=== PATIENT | female | born 1965 | race Caucasian/White ===

== ENCOUNTER 2020-09-07 21:41 | Observation (INO) ==
[2020-09-08] MEDS ORDERED: Acetaminophen 325 MG TABLET PO PRN (01:28)
[2020-09-08] MEDS ORDERED: Naloxone 0.4 MG/ML INJ IVP PRN (01:28)
[2020-09-08] MEDS ORDERED: Ondansetron ODT 4 MG TAB.RAPDIS SL PRN (01:28)
[2020-09-08] MEDS ORDERED: Dextrose Gel 15 GM/37.5 ML TUBE PO PRN ×2 (01:40)
[2020-09-08] MEDS ORDERED: D5% in Water 1,000 ML IVC PRN (01:40)
[2020-09-08] MEDS ORDERED: *HR* Dextrose 50 % in Water (Vial) 50 ML VIAL IVP PRN (01:40)
[2020-09-08] MEDS: Insulin LISPRO 300 UNITS/3 ML VIAL SQ SCH ×4 (02:20→17:43)
[2020-09-08 03:29] LABS: Adenovirus Not Detected (Not Detect); Bordetella Pertussis Not Detected (Not Detect); Chlamydophila pneumoniae Not Detected (Not Detect); Coronavirus 229E Not Detected (Not Detect); Coronavirus HKU1 Not Detected (Not Detect); Coronavirus NL63 Not Detected (Not Detect); Coronavirus OC43 Not Detected (Not Detect); Human Metapneumovirus Not Detected (Not Detect); Human Rhinovirus/Enterovirus Not Detected (Not Detect); Influenza A Subtype 2009 H1 Not Detected (Not Detect); Influenza B Not Detected (Not Detect); Mycoplasma pneumoniae Not Detected (Not Detect); Parainfluenza Virus 1 Not Detected (Not Detect); Parainfluenza Virus 2 Not Detected (Not Detect); Parainfluenza Virus 3 Not Detected (Not Detect); Parainfluenza Virus 4 Not Detected (Not Detect); Respiratory Syncytial Virus Not Detected (Not Detect); SARS-CoV-2 DETECTED (Not Detect)
[2020-09-08 07:01] LABS: Basophils % 0.2 %; Hematocrit 39.7 % (35.3-44.9); Hemoglobin 12.7 g/dL (11.5-15.4); Immature Granulocytes % 0.9 % (0-4); Lymphocytes % 7.5 %; Mean Corpuscular Hemoglobin 27.7 pg (28.0-33.3); Mean Corpuscular Volume 86.7 fL (83.0-100.0); Monocytes # 0.3 K/mcL (0.0-1.3); Monocytes % 2.5 %; Neutrophils # 11.3 K/mcL (1.6-8.9); Platelet Count 167 K/mcL (140-400); Red Blood Count 4.58 M/mcL (3.82-4.97); Red Cell Distribution Width 12.9 % (11.5-14.5); Segmented Neutrophils % 88.9 %; White Blood Count 12.8 K/mcL (4.3-11.1)
[2020-09-08 07:14] LABS: INR 2.7; Prothrombin Time 30.9 Seconds (9.4-12.1)
[2020-09-08 07:29] LABS: Albumin 3.6 g/dL (3.5-5.7); Albumin/Globulin Ratio 0.9 (1.1-2.2); Bilirubin,Total 0.4 mg/dL (0.3-1.0); Calcium 9.2 mg/dL (8.6-10.3); Globulin 4.2 g/dL (2.4-3.5); Magnesium 1.9 mg/dL (1.6-2.6); Phosphorous 2.7 mg/dL (2.7-4.5); Total Protein 7.8 g/dL (6.4-8.9)
[2020-09-08 08:06] LABS: Fibrinogen 693 mg/dL (169-393)
[2020-09-08 08:07] LABS: D-Dimer < 215 ng/mLFEU (0-500)
[2020-09-08] MEDS: cefTRIAXone 1,000 MG in 0.9 % Sodium Chloride Mini Bag 100 ML IVPB SCH (08:40)
[2020-09-08] MEDS: Dexamethasone 4 MG/ML VIAL IVP SCH (08:42)
[2020-09-08] MEDS: Ipratropium 1 PUFF INHALER IH SCH ×5 (09:10→23:37)
[2020-09-08] MEDS: Azithromycin 500 MG in 0.9 % Sodium Chloride 250 ML IVPB SCH (10:35)
[2020-09-08 10:59] LABS: Estimated Average Glucose 243 mg/dl
[2020-09-08 11:46] LABS: Bacteria,Urine Few per hpf (None-Few); Bilirubin,Urine Negative (Negative); Blood,Urine Moderate (Negative); Budding Yeast,Urine Many per hpf (None Seen); Clarity,Urine Turbid (Clear); Color,Urine Yellow (Yellow); Glucose,Urine (UA) Normal (Normal); Hyaline Casts,Urine Few per lpf (None Seen); Ketones,Urine Negative (Negative); Leukocyte Esterase,Urine Large (Negative); Nitrite,Urine Negative (Negative); PH,Urine 5.5 pH Units (5.0-8.0); Protein,Urine Trace mg/dL (Neg-Trace); Specific Gravity,Urine 1.011 (1.010-1.025); Squamous Epithelial Cell,Urine Few per hpf (None-Few); Urobilinogen,Urine Normal (Normal); WBC,Urine 50-100 per hpf (0-3)
[2020-09-08] MEDS: acetaZOLAMIDE 250 MG TABLET PO SCH (18:53)
[2020-09-08] MEDS ORDERED: Insulin DETEMIR 100 UNIT/ML X5UNITS SQ SCH (21:00)
[2020-09-08] MEDS: Apixaban 5 MG TABLET PO SCH (21:05)
[2020-09-08] MEDS: Furosemide 40 MG TABLET PO SCH (21:05)
[2020-09-08] MEDS: Melatonin 3 MG TABLET PO SCH (21:05)
[2020-09-09] MEDS: Insulin Human Regular 100 UNIT in 0.9 % Sodium Chloride 100 ML IVC SCH ×2 (00:16→05:19)
[2020-09-09] MEDS: Ipratropium 1 PUFF INHALER IH SCH ×6 (04:01→23:30)
[2020-09-09] MEDS ORDERED: D5% in Water 1,000 ML IVC PRN (08:33)
[2020-09-09] MEDS ORDERED: Dextrose Gel 15 GM/37.5 ML TUBE PO PRN ×2 (08:33)
[2020-09-09] MEDS ORDERED: *HR* Dextrose 50 % in Water (Vial) 50 ML VIAL IVP PRN (08:33)
[2020-09-09] MEDS: Spironolactone 25 MG TABLET PO SCH (08:37)
[2020-09-09] MEDS: acetaZOLAMIDE 250 MG TABLET PO SCH ×2 (08:38→17:48)
[2020-09-09] MEDS: Apixaban 5 MG TABLET PO SCH ×2 (08:39→20:29)
[2020-09-09] MEDS: Furosemide 40 MG TABLET PO SCH ×2 (08:39→20:30)
[2020-09-09] MEDS: amLODIPine 5 MG TABLET PO SCH (08:39)
[2020-09-09] MEDS: Aspirin 81 MG TAB.CHEW PO SCH (08:40)
[2020-09-09] MEDS: Dexamethasone 4 MG/ML VIAL IVP SCH (08:40)
[2020-09-09] MEDS: Cyanocobalamin (B-12) 1,000 MCG TABLET PO SCH (08:41)
[2020-09-09] MEDS ORDERED: Insulin DETEMIR 100 UNIT/ML X5UNITS SQ SCH (09:00)
[2020-09-09] MEDS: cefTRIAXone 1,000 MG in 0.9 % Sodium Chloride Mini Bag 100 ML IVPB SCH (11:42)
[2020-09-09] MEDS ORDERED: Insulin LISPRO 300 UNITS/3 ML VIAL SQ SCH ×3 (12:00→21:00)
[2020-09-09 12:21] LABS: Basophils % 0.1 %; Hematocrit 40.4 % (35.3-44.9); Hemoglobin 13.1 g/dL (11.5-15.4); Immature Granulocytes % 0.9 % (0-4); Lymphocytes % 7.1 %; Mean Corpuscular HGB Conc 32.4 g/dL (31.6-35.5); Mean Corpuscular Hemoglobin 27.9 pg (28.0-33.3); Mean Platelet Volume 11.4 fL (9.4-12.4); Monocytes # 0.6 K/mcL (0.0-1.3); Monocytes % 4.7 %; Platelet Count 217 K/mcL (140-400); Red Cell Distribution Width 12.8 % (11.5-14.5); Segmented Neutrophils % 87.2 %; White Blood Count 13.7 K/mcL (4.3-11.1)
[2020-09-09] MEDS: Azithromycin 500 MG in 0.9 % Sodium Chloride 250 ML IVPB SCH (13:03)
[2020-09-09 13:14] LABS: Albumin 3.6 g/dL (3.5-5.7); Albumin/Globulin Ratio 0.9 (1.1-2.2); Bilirubin,Total 0.3 mg/dL (0.3-1.0); Calcium 9.5 mg/dL (8.6-10.3); Globulin 4.2 g/dL (2.4-3.5); Potassium 4.5 mEq/L (3.5-5.1); Total Protein 7.8 g/dL (6.4-8.9)
[2020-09-09] MEDS: Insulin LISPRO 300 UNITS/3 ML VIAL SQ SCH ×2 (13:15→17:46)
[2020-09-09] MEDS ORDERED: Insulin DETEMIR 100 UNIT/ML X5UNITS SQ ONE (15:37)
[2020-09-09] MEDS: Melatonin 3 MG TABLET PO SCH (20:29)
[2020-09-09] MEDS: Insulin DETEMIR 100 UNIT/ML X5UNITS SQ SCH (21:58)
[2020-09-09] MEDS ORDERED: hydrALAZINE 10 MG TABLET PO ONE (22:24)
[2020-09-10 03:15] LABS: Basophils % 0.2 %; Hematocrit 43.6 % (35.3-44.9); Immature Granulocytes % 0.7 % (0-4); Lymphocytes # 1.4 K/mcL (0.6-4.6); Lymphocytes % 9.4 %; Mean Corpuscular HGB Conc 32.1 g/dL (31.6-35.5); Mean Corpuscular Hemoglobin 28.5 pg (28.0-33.3); Mean Corpuscular Volume 88.6 fL (83.0-100.0); Mean Platelet Volume 10.8 fL (9.4-12.4); Monocytes # 0.9 K/mcL (0.0-1.3); Monocytes % 5.7 %; Neutrophils # 12.5 K/mcL (1.6-8.9); Platelet Count 237 K/mcL (140-400); Red Blood Count 4.92 M/mcL (3.82-4.97); White Blood Count 14.9 K/mcL (4.3-11.1)
[2020-09-10 03:36] LABS: Albumin 3.7 g/dL (3.5-5.7); Albumin/Globulin Ratio 0.9 (1.1-2.2); Bilirubin,Total 0.3 mg/dL (0.3-1.0); Calcium 9.6 mg/dL (8.6-10.3); Globulin 4.2 g/dL (2.4-3.5); Potassium 3.7 mEq/L (3.5-5.1); Total Protein 7.9 g/dL (6.4-8.9)
[2020-09-10] MEDS: Ipratropium 1 PUFF INHALER IH SCH ×3 (03:58→11:17)
[2020-09-10 06:57] VITALS: BP 156/79
[2020-09-10] MEDS: Furosemide 40 MG TABLET PO SCH (08:10)
[2020-09-10] MEDS: Cyanocobalamin (B-12) 1,000 MCG TABLET PO SCH (08:10)
[2020-09-10] MEDS: Aspirin 81 MG TAB.CHEW PO SCH (08:10)
[2020-09-10] MEDS: Apixaban 5 MG TABLET PO SCH (08:11)
[2020-09-10] MEDS: Insulin LISPRO 300 UNITS/3 ML VIAL SQ SCH ×2 (08:11→12:24)
[2020-09-10] MEDS: amLODIPine 5 MG TABLET PO SCH (08:11)
[2020-09-10] MEDS: Spironolactone 25 MG TABLET PO SCH (08:11)
[2020-09-10] MEDS: cefTRIAXone 1,000 MG in 0.9 % Sodium Chloride Mini Bag 100 ML IVPB SCH (08:12)
[2020-09-10] MEDS: Dexamethasone 4 MG/ML VIAL IVP SCH (08:12)
[2020-09-10] MEDS: acetaZOLAMIDE 250 MG TABLET PO SCH (08:14)
[2020-09-10] MEDS: Insulin DETEMIR 100 UNIT/ML X5UNITS SQ SCH (08:14)
[2020-09-10] MEDS: Azithromycin 500 MG in 0.9 % Sodium Chloride 250 ML IVPB SCH (09:27)
== END 2020-09-10 12:51 ==
LOC: 2NENU → SUATTDRO 09-08 00:51
PROVIDERS: ADMIT Internal Medicine; ATTEND Family Medicine